=== PATIENT | female | born 1940 | race Caucasian/White ===

== ENCOUNTER → 2016-03-29 | Outpatient (CLI) | payer MEDICARE ==
--- NOTE | 2016-03-29 12:30 | CT ---
EXAMINATION TYPE: CT facial bones wo con DATE OF EXAM: 03/29/2016 12:17 PM COMPARISON: NONE HISTORY: Rt Mandibular lesion CT DLP: 448.7 mGycm Automated exposure control for dose reduction was used. TECHNIQUE: CT scan of the sinuses is performed without contrast, axial images are obtained, coronal r eformatted images are also reviewed. Inclusion of the mandible performed. FINDINGS: The visualized portions of the paranasal sinuses bilaterally are well-aerated without abno rmal opacification. The ostiomeatal complex is patent bilaterally on the coronal images. Nasal septa l deviation noted. Visualized portion of mastoid air cells show no abnormal opacification. The globes are intact bilate rally. There is degenerative change of the spine with facet arthropathy and multilevel foraminal encroachmen t. The mandibles intact. A marker is placed over the area of palpable abnormality. There is a prominent blood vessel extending over the mandible at this site. No suspicious soft tissue mass seen. No destructive changes. Temporo mandibular joints are maintained. There is extensive carotid artery calcification bilaterally. IMPRESSION: 1. No suspicious soft tissue mass related to the mandible. There appears to be a prominent blood vess el or an area that is been marked is the palpable abnormality. 2. Severe multilevel degenerative disc disease and facet arthropathy of the cervical spine 3. Marked atherosclerotic changes of the carotid arteries
== END | disposition home or self-care (01) ==
LOC: RADCTMAIN 11:54
PROVIDERS: ATTEND Internal Medicine
DX: M27.8 Other specified diseases of jaws (principal); Z85.3 Personal history of malignant neoplasm of breast
CPT/HCPCS: 70486

== ENCOUNTER → 2016-04-03 | Outpatient (CLI) | payer MEDICARE ==
--- NOTE | 2016-04-03 22:28 | US ---
EXAMINATION TYPE: US carotid duplex BILAT DATE OF EXAM: 04/03/2016 3:55 PM COMPARISON: NONE CLINICAL HISTORY: 75-year-old female Carotid Bruit R09.89. Recent CT showed plaque in carotids TECHNIQUE: Carotid duplex ultrasound performed. Indirect Doppler criteria utilized. FINDINGS: Katz scale images show moderate atherosclerotic changes at the bifurcations. EXAM MEASUREMENTS: RIGHT: Peak Systolic Velocity (PSV) cm/sec ----- Right CCA: 99.6 ----- Right ICA: 192.5 ----- Right ECA: 186.6 ICA/CCA ratio: 1.9 RIGHT: End Diastole cm/sec ----- Right CCA: 13.8 ----- Right ICA: 26.9 ----- Right ECA: 30.9 LEFT: Peak Systolic Velocity (PSV) cm/sec ----- Left CCA: 76.2 ----- Left ICA: 192.5 ----- Left ECA: 126.4 ICA/CCA ratio: 2.5 LEFT: End Diastole cm/sec ----- Left CCA: 12.5 ----- Left ICA: 34.8 ----- Left ECA: 16.4 VERTEBRALS (direction of flow): Right Vertebral: Antegrade Left Vertebral: Antegrade IMPRESSION: Moderate atherosclerotic change at both bifurcations with elevated peak systolic velocities in both I Ramona. On the left, there is also an elevated ICA/CCA ratio. Underlying moderate (50-69%) ICA stenoses are not excluded. CT angiography of the neck can further evaluate if indicated. Criteria for Assigning % of Stenosis / Diameter reduction (Estimation based on the indirect measurements of the internal carotid artery velocities (ICA PSV). 1. Normal (no stenosis)=ICA PSV < 125 cm/s: ratio < 2.0: ICA EDV<40 cm/s. 2. Less than 50% stenosis=ICA PSV < 125 cm/s: ratio < 2.0: ICA EDV<40 cm/s. 3. 50 to 69% stenosis=ICA PSV of 125 to 230 cm/s: ration 2.0 ? 4.0: ICA EDV 40-100 cm/s. 4. Greater than 70% stenosis to near occlusion= ICA PSV > 230 cm/s: ratio > 4.0: ICA EDV > 100 cm/s. 5. Near occlusion= ICA PSV velocities may be low or undetectable: variable ratio and ICA EDV. 6. Total occlusion=unable to detect flow.
== END | disposition home or self-care (01) ==
LOC: RADUSWWP 15:31
PROVIDERS: ATTEND Internal Medicine
DX: I65.23 Occlusion and stenosis of bilateral carotid arteries (principal)
CPT/HCPCS: 93880

== ENCOUNTER 2016-11-14 11:27 | Day surgery (SDC) | payer MEDICARE ==
[2016-11-12 15:12] VITALS: BMI 19.8
[~2016-11-14 11:27] MED LIST: LACTATED RINGERS 1,000 ML IV SCH; LIDOCAINE 1% 20 ML VIAL (10MG/ML) FOR IV START INTRADERMA PRN
[2016-11-14 12:31] VITALS: TEMP 99.2
[2016-11-14] MEDS ORDERED: PROPOFOL 10 MG/ML 20 ML VIAL IV ONE (12:31)
[2016-11-14] MEDS ORDERED: LIDOCAINE 1% INJ 10MG/ML (20 ML MDV) ONE (12:31)
[2016-11-14] MEDS ORDERED: LACTATED RINGERS 1,000 ML IV ONE (13:00)
--- NOTE | 2016-11-14 13:10 | P.PCN ---
Date of Procedure: 11/14/16 Procedure(s) Performed: Procedures: 1. Esophagogastroduodenoscopy and biopsy. 2. Total colonoscopy. Preoperative diagnosis: Change in bowel habits, history of polyps, chronic reflux and blood in the stools. Postoperative diagnosis: 1. Small sliding hiatal hernia. 2. Mild gastritis. 3. Sigmoid diverticulosis. Preparation: HalfLytely prep. Sedation: Was provided by anesthesia. Brief clinical history: The patient is a 76-year-old female who is scheduled for this evaluation for the above reasons. Her last exam was in November 2010. Procedure: With the patient on her left lateral decubitus position and after informed consent and adequate sedation, I passed the Olympus-GIF 160 video upper endoscope through the cricopharyngeus down the esophagus. GE junction was around 40 cm from the incisors and there was a small sliding hiatal hernia. The esophagus did not show any obvious esophagitis or complicated reflux disease. The endoscope was then passed into the stomach which was insufflated with air and inspected in detail including the retroflex view in the cardia. There was minimal mottling and erythema in the antrum but no ulcers or erosions. Pyloric channel, duodenal bulb, post bulbar area and descending duodenum were essentially within normal limits. However, because of her history , I obtained biopsies from the duodenum, antrum and esophagus then the endoscope was withdrawn and I proceeded with the colonoscopy. Perianal area did not show any fissures or fistulas. There were no masses felt on digital rectal examination. The Olympus CFQ 160L video colonoscope was then inserted in the rectum in the usual fashion and advanced to the cecum. There were multiple diverticular orifices seen scattered in the sigmoid with no evidence of acute diverticulitis or strictures. The mucosa appeared healthy. No polyps or tumors were seen. I retroflexed the endoscope in the rectum before the endoscope was withdrawn. Low-grade internal hemorrhoids were noted but there was no bleeding. The patient tolerated the procedure well. Plan: The patient was reassured. Discussed dietary measures and local care for hemorrhoids. Will await biopsy results. Further plans will be made based on her course. She will follow-up with you as planned. At her age, I did not schedule a follow-up screening/surveillance because of her history of polyps and that can be kept as a contingency based on her overall health.
[2016-11-14 13:25] VITALS: BP 117/71
[2016-11-14 13:45] VITALS: PULSE 68; RESP 16
== END 2016-11-14 14:19 | disposition home or self-care (01) ==
LOC: ORWHC2ENDO 11:27
DX: K57.30 Diverticulosis of large intestine without perforation or abscess without bleeding (principal); K64.8 Other hemorrhoids; K29.50 Unspecified chronic gastritis without bleeding; K21.0 Gastro-esophageal reflux disease with esophagitis; Z86.010 Personal history of colon polyps; I10 Essential (primary) hypertension; E78.5 Hyperlipidemia, unspecified; F17.200 Nicotine dependence, unspecified, uncomplicated; Z95.1 Presence of aortocoronary bypass graft; Z79.1 Long term (current) use of non-steroidal anti-inflammatories (NSAID); Z79.82 Long term (current) use of aspirin; Z79.899 Other long term (current) drug therapy
CPT/HCPCS: 88305; 88342; 45378; 43239; J2001; J2704

== ENCOUNTER → 2019-10-21 | Outpatient (CLI) | payer MEDICARE ==
[2019-10-21 11:55] LABS: HCT 42.5 % (34.0-46.0); HGB 13.6 gm/dL (11.4-16.0); MCH 31.6 pg (25.0-35.0); MCHC 31.9 g/dL (31.0-37.0); MCV 98.8 fL (80.0-100.0); Mean Platelet Volume 7.1; Platelet Count 220 k/uL (150-450); RDW 13.2 % (11.5-15.5); WBC 6.5 k/uL (3.8-10.6)
[2019-10-21 12:02] LABS: Potassium 4.4 mmol/L (3.5-5.1)
== END | disposition home or self-care (01) ==
LOC: LABWHC1 10:03
PROVIDERS: ATTEND Internal Medicine Interventional Cardiology
DX: Z01.812 Encounter for preprocedural laboratory examination (principal); I35.0 Nonrheumatic aortic (valve) stenosis
CPT/HCPCS: 36415; 80051; 82565; 84520; 85027

== ENCOUNTER 2019-10-26 07:54 | Day surgery (SDC) | payer MEDICARE ==
[2019-10-19 10:35] VITALS: BMI 21.1
[~2019-10-26 07:54] MED LIST changes: +ALPRAZolam 0.25 MG TAB PO PRN; +ALPRAZolam 0.5 MG TAB PO PRN; +ASPIRIN 325 MG TAB PO STA; +ATORVASTATIN 80 MG TAB PO STA; -LACTATED RINGERS 1,000 ML IV SCH; -LIDOCAINE 1% 20 ML VIAL (10MG/ML) FOR IV START INTRADERMA PRN; +NITROGLYCERIN SL TABS 0.4 MG TAB SUBLINGUAL PRN; +SODIUM CHLORIDE 0.9% 1,000 ML in EMPTY BAG 1 BAG IV ONE
[2019-10-26] MEDS ORDERED: SODIUM CHLORIDE 0.9% 1,000 ML IV ONE (08:28)
[2019-10-26] MEDS ORDERED: LIDOCAINE 1% INJ 10MG/ML (20 ML MDV) ONE (08:46)
[2019-10-26] MEDS ORDERED: fentaNYL (PF) 50 MCG/ML 2 ML AMP ONE (08:46)
[2019-10-26] MEDS ORDERED: HEPARIN SODIUM 1,000 UN/ML (10ML VL) ONE (08:46)
[2019-10-26] MEDS ORDERED: MIDAZOLAM 2 MG/2 ML VIAL IVP ONE (08:54)
[2019-10-26] MEDS ORDERED: LIDOCAINE 1% INJ 10MG/ML (20 ML MDV) SQ ONE (09:02)
[2019-10-26] MEDS ORDERED: BIVALIRUDIN 250 MG in SODIUM CHLORIDE 0.9% 50 ML IV ONE (09:20)
[2019-10-26] MEDS ORDERED: BIVALIRUDIN BOLUS 250 MG/50 ML IV ONE (09:20)
[2019-10-26] MEDS ORDERED: fentaNYL (PF) 50 MCG/ML 2 ML AMP IVP ONE (09:41)
[2019-10-26] MEDS ORDERED: NITROGLYCERIN 1000MCG/10ML SYRINGE INTRACORON ONE (09:43)
[2019-10-26] MEDS ORDERED: hydrALAZINE HCL 20 MG/ML 1 ML VIAL ONE (09:45)
[2019-10-26] MEDS ORDERED: CLOPIDOGREL 75 MG TAB ONE (09:46)
[2019-10-26] MEDS ORDERED: IOPAMIDOL-370 125ML BTL INJ ONE (09:50)
[2019-10-26] MEDS ORDERED: CLOPIDOGREL 75 MG TAB PO ONE (09:50)
[2019-10-26] MEDS ORDERED: SODIUM CHLORIDE 0.9% 1,000 ML IV SCH (10:00)
[2019-10-26] MEDS ORDERED: RX INFO: IV CONTRAST WAS GIVEN 1 EACH MISC MISCELLANE PRN (10:22)
--- NOTE | 2019-10-26 10:31 | CC ---
CARDIAC CATHETERIZATION REPORT DATE OF SERVICE: 10/26/2019 PERFORMING PHYSICIAN: Daryl Ely MD. PROCEDURE PERFORMED: 1. Selective left and right coronary angiogram. 2. SVG to RCA angiogram. 3. Left heart catheterization. 4. Successful stenting of the mid left circumflex using 3.0 x 12 mm Xience MARIA G with an excellent angiographic results. INDICATION: This is an 78-year-old female patient who sees Dr. Duval as an outpatient with known history of coronary artery disease and prior coronary artery bypass grafting 10 years ago, where she received at that point, FAITH to LAD and reverse SVG to PDA of the RCA as well as known aortic stenosis, was experiencing symptoms of shortness of breath with exertion. She was scheduled today to undergo a heart catheterization as well as 4 gradient measurement across the aortic valve. COMPLICATION: None. LEVEL OF SEDATION: Moderate with sedation length of 45 minutes. PROCEDURE DESCRIPTION: After obtaining an informed consent, the patient was brought to the cardiac medical lab tech instructor. The right common femoral artery was cannulated using micropuncture technique, the micropuncture wire passed easily, then I placed a 6-Zimbabwean sheath at the right common femoral artery. Selective left and right coronary angiogram performed with JL4 and JR4 catheters. After that, I did SVG to RCA using the JR4 catheter. After that, I did cross the aortic valve using 6-Zimbabwean pigtail catheter. I did pullback across the aortic valve as well. Subsequently, I did intervene on the left circumflex, please see a separate paragraph for that. SELECTIVE CORONARY ANGIOGRAM: 1. The left main appeared to be diseased in the range of 30%-40%. It bifurcates into LCX and LAD. 2. The LCX is a large caliber vessel and it is a dominant vessel. The proximal left circumflex is angiographically normal and gives rise into a large OM branch which seems to be angiographically normal. The mid left circumflex in between OM1 and OM2 has a lesion, appeared to be in the range of 80%. OM2 appeared to have mild disease only. The circumflex distally bifurcates into PDA and PLV branches, both appeared to be angiographically normal. 3. The left anterior descending artery has a critical lesion in the proximal portion, but competitive flow was seen from the FAITH. 4. The right coronary artery is subtotally occluded in the midportion. 5. The SVG to RCA has a lesion, appeared to be in the range of 60% to 70%. 6. The FAITH to LAD is patent. 7. HEMODYNAMICS: The LVEDP was 4-6 mmHg with peak to peak gradient across the valve of 27 mmHg. 8. PCI OF THE LEFT CIRCUMFLEX: Anticoagulation was initiated using Angiomax. Subsequently, I did engage the left main using JL3.5 guide. I did wire the left circumflex using a run-through wire. Balloon angioplasty performed using 2.5 x 12 mm balloon, where the balloon was inflated under 16 atmospheres for 20 seconds x2. Attempting advancing 3.0 x 12 mm stent which was a Xience drug-eluting stent was unsuccessful over the wire and also unsuccessful using a john wire which was a Whisper wire. I attempted advancing the Valentine drug-eluting stent which is a lower profile than Xience drug-eluting stent and that also was unsuccessful. At that point, I decided to change my Whisper long wire into in a Mailman wire. That was performed over 1.5 mm over the wire balloon. With that, I was able to advance the 3.0 x 12 mm Xience over the run-through wire and the stent was positioned under fluoroscopy guidance and deployed under 14 atmospheres for 20 seconds. The following angiogram showed excellent angiographic results and the procedure was completed without any complication. CONCLUSION: 1. Critical disease involving the proximal left anterior descending artery. The FAITH to LAD is patent. 2. Critical disease involving the mid left circumflex. The left circumflex unprotected with any bypass. 3. Occluded right coronary artery. The SVG to RCA has intermediate to severe lesion, appeared to be in the range of 60% to 70%. 4. Moderate aortic stenosis. The peak to peak gradient was only 27 mmHg. 5. I did perform successful stenting of a complex calcified lesion in the left circumflex using 3.0 x 12 mm Xience MARIA G with an excellent angiographic result and reduction of stenosis from 80% to 0%. POSTPROCEDURE MANAGEMENT: 1. Assess the lesion in the SVG to RCA to see if it is ischemic and that can be perform by FFR, if the patient is symptomatic next. 2. Follow up with Dr. Duval. MMODL / IJN: [id number] /
--- NOTE | 2019-10-26 10:34 | LTR ---
DATE OF SERVICE: 10/26/2019 RE: Inocencia Jacobs Dear Dr. Li; Ms. Inocencia Jacobs was seen recently in the office by Dr. Duval for shortness of breath. He scheduled the patient to undergo a heart catheterization. The heart catheterization revealed critical disease involving the left circumflex and she underwent successful stenting of the left circumflex. Thank you for allowing us to participate in her care and please do not hesitate to call for any question. Sincerely yours, MD RONNY Fowler / LLOYD: [id number] /
[2019-10-26] MEDS ORDERED: HYDROmorphone 1 MG/ML 1 ML SYRINGE IVP PRN (10:43)
[2019-10-26] MEDS ORDERED: HYDROmorphone 0.5 MG/0.5 ML SYRINGE IVP PRN (10:43)
[2019-10-26] MEDS ORDERED: ATROPINE SULFATE 0.1 MG/ML 10ML SYRINGE ONE (12:11)
[2019-10-26] MEDS: FUROSEMIDE 20 MG TAB PO SCH (20:16)
[2019-10-26] MEDS ORDERED: ATORVASTATIN 20 MG TAB PO SCH (21:00)
[2019-10-27 06:52] LABS: Basophils % (A) 1 %; Eosinophils # (A) 0.2 k/uL (0-0.7); Eosinophils % (A) 3 %; HCT 40.7 % (34.0-46.0); HGB 13.5 gm/dL (11.4-16.0); Lymphocytes # (A) 1.3 k/uL (1.0-4.8); Lymphocytes % (A) 25 %; MCH 32.7 pg (25.0-35.0); MCHC 33.2 g/dL (31.0-37.0); MCV 98.6 fL (80.0-100.0); Mean Platelet Volume 7.3; Monocytes # (A) 0.4 k/uL (0-1.0); Monocytes % (A) 7 %; Neutrophils # (A) 3.2 k/uL (1.3-7.7); Neutrophils % (A) 62 %; Platelet Count 209 k/uL (150-450); RBC 4.13 m/uL (3.80-5.40); RDW 13.2 % (11.5-15.5); WBC 5.2 k/uL (3.8-10.6)
[2019-10-27 07:02] LABS: Calcium 8.5 mg/dL (8.4-10.2); Potassium 4.3 mmol/L (3.5-5.1)
[2019-10-27] MEDS ORDERED: PANTOPRAZOLE 40 MG TABLET PO SCH (07:30)
[2019-10-27 08:23] VITALS: BP 127/58; PULSE 79; RESP 18; TEMP 97.9
[2019-10-27] MEDS: FUROSEMIDE 20 MG TAB PO SCH (08:24)
[2019-10-27] MEDS ORDERED: ASPIRIN 325 MG TAB PO SCH (09:00)
[2019-10-27] MEDS ORDERED: CLOPIDOGREL 75 MG TAB PO SCH (09:00)
[2019-10-27] MEDS ORDERED: atenoloL 50 MG TAB PO SCH (09:00)
--- NOTE | 2019-10-27 16:20 | DS ---
DISCHARGE SUMMARY DATE OF ADMISSION: 10/26/2019 DATE OF DISCHARGE: 10/27/2019 BRIEF HISTORY: This is an 78-year-old female patient who sees Dr. Duval in the office as an outpatient with history of aortic stenosis as well as coronary artery disease and prior coronary artery bypass grafting with FAITH to LAD and SVG to RCA. She was experiencing symptoms of shortness of breath. She underwent yesterday heart catheterization. The heart catheterization revealed critical disease involving unprotected left circumflex coronary artery with patent FAITH to LAD as well as intermediate to severe disease involving the graft to right coronary artery. Also I did a gradient measurement across aortic valve, which was 27 mmHg only. She underwent yesterday successful stenting of the left circumflex with good angiographic results and without any complication. The patient is going to be discharged home today. Her right groin is soft and nontender and without any bruises. The patient is going to follow up with Dr. Duval in the office as an outpatient. MMODL / IJN: [id number] /
== END 2019-10-27 11:47 ==
LOC: CATHCVL 07:54 → 3SCARD 09:46 → CATHCVL 10-27 11:47
PROVIDERS: ATTEND Internal Medicine Interventional Cardiology
DX: I25.110 Atherosclerotic heart disease of native coronary artery with unstable angina pectoris (principal); I25.710 Atherosclerosis of autologous vein coronary artery bypass graft(s) with unstable angina pectoris; I25.84 Coronary atherosclerosis due to calcified coronary lesion; I35.0 Nonrheumatic aortic (valve) stenosis; I10 Essential (primary) hypertension; E78.00 Pure hypercholesterolemia, unspecified; Z95.1 Presence of aortocoronary bypass graft; E78.5 Hyperlipidemia, unspecified; E78.2 Mixed hyperlipidemia; Z85.3 Personal history of malignant neoplasm of breast; Z79.899 Other long term (current) drug therapy
CPT/HCPCS: 93459; 80048; 85025; C9600; C1769 ×5; C1887; C1725 ×2; C1894; C1874 ×2; J2250; J2001; J3010; J0583; J1170; Q9967

== ENCOUNTER → 2020-01-24 | Outpatient (CLI) | payer MEDICARE ==
--- NOTE | 2020-01-24 19:09 | CT ---
EXAMINATION TYPE: CT angio neck DATE OF EXAM: 01/24/2020 HISTORY: Occlusion and stenosis of bilateral carotid. COMPARISON: Ultrasound 04/03/2016. CT DLP: 219.50 mGycm. Automated Exposure Control for Dose Reduction was Utilized. TECHNIQUE: CTA scan of the neck is performed with IV Contrast, patient injected with 65 mL of Isovue 370, axial images are obtained, coronal and sagittal reformatted images are reviewed. Three-D recons tructed images are created on an independent workstation and reviewed. FINDINGS: Carotid/Vascular Structures: Advanced atherosclerotic disease of the aortic arch is seen. There is mo derate to advanced left and moderate right atherosclerotic plaques at the carotid bulbs. There is lucina rt segment severe stenosis (approximately 80-90%) of the left proximal ICA and moderate stenosis (santi roximately 50-69%) of the right proximal ICA. The remainder of the bilateral cervical carotid arteri es are otherwise patent. There is a diminutive right vertebral artery, consistent with nondominant variant. Otherwise the bila teral carotid arteries are patent without significant stenosis. Other: Incidental 1.7 cm right upper lobe nodule. Background of moderate to severe emphysema. IMPRESSION: Severe left and moderate right proximal ICA stenosis. Incidental 1.7 cm right upper lobe nodule, concerning for malignancy. Recommend correlation with prio r imaging if available. Otherwise follow-up with tissue acquisition and/or PET/CT.
== END | disposition home or self-care (01) ==
LOC: RADCTMAIN 15:53
PROVIDERS: ATTEND Internal Medicine Clinical Cardiac Electrophysiology
DX: I65.23 Occlusion and stenosis of bilateral carotid arteries (principal)
CPT/HCPCS: 82565; 84520; 70498; 36415; Q9967

== ENCOUNTER → 2020-10-10 | Outpatient (CLI) | payer MEDICARE ==
--- NOTE | 2020-10-10 17:50 | XR ---
"EXAMINATION TYPE: XR chest 2V DATE OF EXAM: 10/10/2020 COMPARISON: Chest x-ray 03/29/[address] 01/24/2020 HISTORY: Difficulty breathing, R04.2 TECHNIQUE: Frontal and lateral views of the chest are obtained. FINDINGS: There is abnormal density in the right upper lobe, some bandlike density abuts the mediast inum and extends from the right hilar region to the right lung apex. Patient is rotated. Suspect some retraction of the right hilum a cephalad direction. Heart is not enlarged. Aorta is dense. No eviden t pneumothorax or pleural effusion. Prominent lung volumes, flattening the hemidiaphragms on the left may be indicative of air trapping, underlying COPD. Surgical clips present at the gastroesophageal j unction. There is likely spinal curvature, degenerative disc change in the visualized spine. IMPRESSION: Probable postobstructive right upper lobe atelectasis due to central malignancy having p rogressed from prior CT, recommend pulmonary consult A Yellow level critical message alert has been initiated for Chapincito Li MD via the [facility] | Critical Results System on 10/10/2020 5:48 PM. This message alert has been sent to Chapincito chairez MD via the preferences provided by the clinician for the receipt of Radiology Critical Findings. [place] essage ID [id number]."
[2020-10-10 23:05] LABS: Basophils # (A) 0.02 X 10*3/uL (0.00-0.10); Basophils % (A) 0.2 %; Eosinophils # (A) 0 X 10*3/uL (0.04-0.35); Eosinophils % (A) 0 %; HCT 40.1 % (37.2-46.3); Lymphocytes # (A) 1.77 X 10*3/uL (0.90-5.00); Lymphocytes % (A) 14.5 %; MCH 30.6 pg (27.0-32.0); MCHC 32.4 g/dL (32.0-37.0); MCV 94.4 fL (80.0-97.0); Mean Platelet Volume 9.6 fL (9.5-12.2); Monocytes % (A) 8.2 %; Neutrophils # (A) 9.18 X 10*3/uL (1.80-7.70); Neutrophils % (A) 75.5 %; Platelet Count 319 X 10*3/uL (140-440); RBC 4.25 X 10*6/uL (4.10-5.20); RDW 14.2 % (11.5-14.5); WBC 12.17 X 10*3/uL (4.50-10.00)
[2020-10-11 16:34] LABS: African American GFR (CKD) 49.1 (60.0-200.0); Anion Gap 9.4 mmol/L (4.00-12.00); BUN/Creat Ratio 28.33 Ratio (12.00-20.00); Calcium 9.2 mg/dL (8.7-10.3); Carbon Dioxide 26.6 mmol/L (21.6-31.8); Non-African American GFR(CKD) 42.3 (60.0-200.0); Potassium 4.5 mmol/L (3.5-5.5); Total Bilirubin 0.6 mg/dL (0.3-1.2)
== END | disposition home or self-care (01) ==
LOC: LABWHC1 15:30
PROVIDERS: ATTEND Internal Medicine
DX: R04.2 Hemoptysis (principal); R06.02 Shortness of breath
CPT/HCPCS: 36415; 71046; 80053; 85025